=== PATIENT | female | born 1945 | race Caucasian/White ===

== ENCOUNTER 2017-05-28 09:40 | Inpatient (IN) | payer OTHER ==
[~2017-05-28] VITALS: Ht 152.4 cm; Wt 54.4 kg
[~2017-05-28 09:40] MED LIST: BUSPIRONE HCL5 MG; DIAZEPAM5 MG; DICY10CA; LEVO-T25 MCG; PROTONIX40 MG; RAZADYNE4 MG; ULTRACET PO; VASOTEC5 MG; ZANTAC300 MG; [UNRECOGNIZED DRUG - OTHER] COM
[2017-06-05] MEDS ORDERED: INTEGRA PLUS C1 EACH PO (09:25)
== END 2017-06-05 14:07 | disposition home or self-care (01) | DRG 690 ==
LOC: ER 09:40 → MEDJ 10:57
PROVIDERS: Radiology Vascular & Interventional Radiology
PROC: 0T773DZ Dilation of Left Ureter with Intraluminal Device, Percutaneous Approach (ICD-10-PCS; principal; 2017-05-29 19:00)
PROC: 8E0ZXY6 Isolation (ICD-10-PCS; 2017-05-30)
PROC: 02HV33Z Insertion of Infusion Device into Superior Vena Cava, Percutaneous Approach (ICD-10-PCS; 2017-05-31)
DX: N39.0 Urinary tract infection, site not specified (principal); E87.1 Hypo-osmolality and hyponatremia; C18.9 Malignant neoplasm of colon, unspecified; N99.522 Malfunction of incontinent external stoma of urinary tract; Y83.8 Other surgical procedures as the cause of abnormal reaction of the patient, or of later complication, without mention of misadventure at the time of the procedure; Y92.092 Bedroom in other non-institutional residence as the place of occurrence of the external cause; N13.1 Hydronephrosis with ureteral stricture, not elsewhere classified; B96.5 Pseudomonas (aeruginosa) (mallei) (pseudomallei) as the cause of diseases classified elsewhere; Z16.24 Resistance to multiple antibiotics; D50.8 Other iron deficiency anemias; Z78.1 Physical restraint status